=== PATIENT | male | born 1980 | race Native Hawaiian/Other Pacific Islander ===

== ENCOUNTER 2018-08-11 08:14 | Outpatient (CLI) | payer OTHER ==
[2018-08-11 08:40] LABS: PLATELET COUNT 247 K/uL (142-355)
== END 2018-08-11 19:07 | disposition home or self-care (01) ==
LOC: LABW 08:14
PROVIDERS: Internal Medicine
DX: E66.9 Obesity, unspecified (principal)
CPT/HCPCS: 36415; 80053; 80061; 81000; 84439; 84443; 85027

== ENCOUNTER 2018-08-23 06:59 | Outpatient (CLI) | payer OTHER | END 2018-08-23 19:18 | disposition home or self-care (01) | LOC: LABW 06:59 | DX: R73.9 Hyperglycemia, unspecified (principal) | CPT/HCPCS: 36415; 82951; 82952; 83036 ==

== ENCOUNTER 2018-12-08 08:27 | Outpatient (CLI) | payer OTHER ==
[2018-12-08 08:44] LABS: PLATELET COUNT 206 K/uL (142-355)
[2018-12-08 09:02] LABS: POTASSIUM 4.8 mmol/L (3.6-5.2)
== END 2018-12-08 22:32 | disposition home or self-care (01) ==
LOC: LABW 08:27
PROVIDERS: Internal Medicine
DX: E11.9 Type 2 diabetes mellitus without complications (principal)
CPT/HCPCS: 36415; 80053; 80061; 81000; 82043; 82570; 83036; 84443; 85027

== ENCOUNTER 2019-11-14 11:12 | Emergency (ER) | payer OTHER ==
[~2019-11-14] VITALS: Ht 167.6 cm; Wt 99.8 kg
[2019-11-14 11:27] VITALS: TEMP 98.6
[2019-11-14 13:05] VITALS: BP 119/79
== END 2019-11-14 13:05 | disposition home or self-care (01) ==
LOC: ED 11:12
DX: J30.89 Other allergic rhinitis (principal); J06.9 Acute upper respiratory infection, unspecified; U07.1 COVID-19
CPT/HCPCS: 87502; 87635; 87651; 99283; U0002